=== PATIENT | female | born 1990 | race Caucasian/White ===

== ENCOUNTER 2020-10-22 14:10 | Outpatient (REF) | payer OTHER, SELFPAY ==
--- NOTE | 2020-10-22 | US_ITS ---
EXAMINATION: US PELVIS CLINICAL INFORMATION: Excessive and frequent menstruation with irregular cycle. Age 30. LMP 2 weeks ago. COMPARISON: None TECHNIQUE: Ultrasound of the pelvis is performed using transabdominal transducer. Grayscale and color Doppler are performed. Patient declined transvaginal transducer. FINDINGS: Uterus: The uterus is anteverted and enlarged measuring 11.9 x 5.7 x 8.4 cm. Volume 298 mL. The double wall endometrial thickness is within normal at mid cycle, measuring 14 mm. The endometrium is homogeneous in echogenicity and contours are smooth. There are multiple fibroids, at least 6 are visualized. The fibroids are all hypoechoic. No macrocalcification visualized. The largest fibroid is intramural left fundus/body measuring 4.1 x 4.0 x 3.7 cm. The next largest fibroid is intramural right fundus measuring 3.3 x 3.2 x 3.0 cm. There is an exophytic subserous fibroid findings right of midline measuring 3.0 x 2.6 x 1.9 cm. The other 3 fibroids are intramural fundus and body measuring 3 cm, 1.9 cm, and 1.7 cm. Adnexa: Both ovaries are visualized. There is normal color flow to the adnexa. There is no ovarian torsion. There is no pelvic ascites or fluid collection. Right ovary measures 4.0 x 2.3 x 2.4 cm. There is a dominant follicle measuring 1.6 cm. Left ovary measures 2.4 x 1.4 x 2.3 cm. US/US pelvic complete IMPRESSION: 1. Uterus: Mildly enlarged, volume 298 mL. Multiple fibroids, the 2 largest measure 4.1 and 3.3 cm, respectively. 2. Adnexa: Incidental dominant follicle on right 1.6 cm. No pelvic ascites.
== END 2020-10-22 14:11 | disposition home or self-care (01) ==
LOC: HO.US 14:10
PROVIDERS: Visit Provider Advanced Practice Midwife
DX: N92.1 Excessive and frequent menstruation with irregular cycle (principal)
CPT/HCPCS: 76856

== ENCOUNTER → 2022-08-05 10:39 | Outpatient (BNVA) | payer OTHER, SELFPAY | PROVIDERS: PCP Internal Medicine; Referring Provider Internal Medicine; Visit Provider Surgery | DX: L05.91 Pilonidal cyst without abscess (principal) | CPT/HCPCS: 99202 ==